=== PATIENT | male | born 1975 | race Caucasian/White ===

== ENCOUNTER 2017-04-04 19:56 | Emergency (ER) | payer SELFPAY ==
[~2017-04-04] VITALS: Ht 172.7 cm; Wt 77.0 kg
[~2017-04-04 19:56] MED LIST: IBUP-1008; KEPP500; LEVE500T19
[2017-04-04] MEDS ORDERED: SODIUM CHLORIDE 0.9% 1,000 ML IV ONE (20:14)
[2017-04-04] MEDS ORDERED: LEVETIRACETAM 500MG PREMIX 100 ML IV ONE (20:15)
[2017-04-04 21:04] LABS: BASOPHILS % 0.7 % (0.0-2.0); EOSINOPHILS % 2.7 % (0.0-5.0); HEMATOCRIT. 41.6 % (42.0-52.0); HEMOGLOBIN. 14.3 g/dL (14.0-18.0); LYMPHOCYTES % 15.6 % (20.0-50.0); MEAN CORPUSCULAR HEMOGLOBIN 29.6 pg (28.0-32.0); MEAN CORPUSCULAR VOLUME 86.4 fL (80.0-94.0); MEAN PLATELET VOLUME 8.8 fl (7.4-10.4); MONOCYTES % 9.5 % (2.0-8.0); NEUTROPHILS % 71.5 % (40.0-76.0); PLATELET 214 x1000/uL (130-400); RED BLOOD CELL COUNT 4.82 mill/uL (4.7-6.1); RED CELL DISTRIBUTION WIDTH 14.4 % (11.6-14.6)
[2017-04-04 21:11] LABS: CARBON DIOXIDE 27 mEq/L (21-32); CHLORIDE 107 mEq/L (98-107); PARTIAL THROMBOPLASTIN TIME 22.6 sec (24.0-34.0); PROTHROMBIN TIME 10.3 sec
[2017-04-04 21:13] LABS: ETHANOL BLOOD < 10 mg/dL
[2017-04-04 21:18] LABS: *AMPHETAMINES SCREEN URINE PRESUMTIVE POSITIVE (NEGATIVE); *BARBITURATES SCREEN URINE NEGATIVE (NEGATIVE); *BENZODIAZEPINES SCREEN URINE NEGATIVE (NEGATIVE); *COCAINE SCREEN URINE NEGATIVE (NEGATIVE); CANNABINOID URINE SCREEN PRESUMTIVE POSITIVE (NEGATIVE); METHADONE URINE SCREEN NEGATIVE (NEGATIVE); OPIATES URINE SCREEN NEGATIVE (NEGATIVE); PHENCYCLIDINE URINE SCREEN NEGATIVE (NEGATIVE)
[2017-04-04 22:14] VITALS: BP 145/99
== END 2017-04-05 00:33 | disposition home or self-care (01) ==
LOC: ER 19:56
DX: G40.909 Epilepsy, unspecified, not intractable, without status epilepticus (principal); R41.0 Disorientation, unspecified; F15.10 Other stimulant abuse, uncomplicated; F12.10 Cannabis abuse, uncomplicated; Z87.820 Personal history of traumatic brain injury; R53.1 Weakness
CPT/HCPCS: 36415; 70450; 80048; 80305; 85025; 85610; 85730; 96365; 99285; G0482; J1953; J7030; Z7610

== ENCOUNTER 2017-11-24 17:26 | Emergency (ER) | payer SELFPAY ==
[~2017-11-24] VITALS: Ht 175.3 cm; Wt 78.0 kg
[2017-11-24 17:28] VITALS: BP 132/90
== END 2017-11-24 22:05 | disposition left against medical advice (07) ==
LOC: ER 18:59
DX: R56.9 Unspecified convulsions (principal); Z53.21 Procedure and treatment not carried out due to patient leaving prior to being seen by health care provider